=== PATIENT | male | born 1990 | race Caucasian/White ===

== ENCOUNTER 2023-01-29 17:27 | Emergency (ER) | payer OTHER ==
[~2023-01-29] VITALS: Ht 180.3 cm; Wt 94.8 kg
[2023-01-29 17:34] VITALS: BP 151/94; PULSE 63; RESP 18; TEMP 98; O2SAT 100
[2023-01-29] MEDS ORDERED: NORCO 10MG PO STA (17:43)
[2023-01-29] MEDS ORDERED: AUGMENTIN 875MG PO STA (17:43)
[2023-01-29] MEDS ORDERED: AUGMENTIN 875MG ONE (17:50)
[2023-01-29] MEDS ORDERED: NORCO 10MG PO ONE (17:51)
[2023-01-29 17:58] VITALS: BP 145/84; PULSE 59; RESP 16; O2SAT 99
== END 2023-01-29 17:58 | disposition home or self-care (01) ==
LOC: ER 17:27
DX: H66.91 Otitis media, unspecified, right ear (principal)
CPT/HCPCS: 99283